=== PATIENT | female | born 1980 | race Caucasian/White ===

== ENCOUNTER → 2024-10-07 14:44 | Outpatient (REF) | payer MEDICARE, SELFPAY | LOC: HWWDC 14:44 | PROVIDERS: ATTENDING PHYSICIAN Family Medicine | DX: Z12.31 Encounter for screening mammogram for malignant neoplasm of breast (principal) | CPT/HCPCS: 77063; 77067 ==

== ENCOUNTER → 2025-02-25 13:13 | Outpatient (REF) | payer MEDICARE, SELFPAY | LOC: HWCARD 13:13 | PROVIDERS: ATTENDING PHYSICIAN Family Medicine; REFERRING PHYSICIAN Specialist | DX: Z79.899 Other long term (current) drug therapy (principal) | CPT/HCPCS: 93005 ==